=== PATIENT | female | born 1995 | race American Indian/Alaskan Native ===

== ENCOUNTER 2017-04-21 13:24 | Emergency (ER) | payer MEDICAID ==
[2017-04-21 13:34] VITALS: BMI 23.8
[2017-04-21 13:36] VITALS: RESP 18; TEMP 98.5; O2SAT 98
--- NOTE | 2017-04-21 14:58 | RAD ---
HISTORY: cough x 3 weeks COMPARISON: No prior. TECHNIQUE: Chest PA and lateral FINDINGS: LUNGS: No active pulmonary disease. PLEURA: No significant pleural effusion identified. No pneumothorax apparent. CARDIOVASCULAR: Normal. OSSEOUS STRUCTURES: No significant abnormalities. VISUALIZED UPPER ABDOMEN: Normal. OTHER FINDINGS: None. IMPRESSION: No active disease.
[2017-04-21] MEDS ORDERED: Albuterol 0.083% Inhal Sol (2.5 mg/3 mL) UD IH STA (15:01)
--- NOTE | 2017-04-21 15:22 | ED PDOC ---
Arrival/HPI - General Chief Complaint: Cough, Cold, Congestion Time Seen by Provider: 04/21/17 15:01 Historian: Patient - History of Present Illness Narrative History of Present Illness (Text): 04/21/17 16:09 21-year-old female presents today with a 3 week history of cough. Patient was recently prescribed Augmentin 2 days ago. Patient states she still has continued cough. She denies shortness of breath. She is complaining of nasal congestion and sore throat. She denies dizziness or weakness. Denies chest pain. Patient states the cough is dry. She is a nonsmoker. She is complaining of subjective fevers at home. No other complaints Time/Duration: > week (3weeks) Symptom Course: Unchanged Severity Level: Mild Past Medical History - Provider Review Nursing Documentation Reviewed: Yes - Travel History Have you recently traveled outside [place] w/in the past 3 mons?: No - Infectious Disease Hx of Infectious Diseases: None - Tetanus Immunization Tetanus Immunization: Unknown - Psychiatric Hx Substance Use: No - Anesthesia Hx Anesthesia: No Family/Social History - Physician Review Nursing Documentation Reviewed: Yes Family/Social History: Unknown Family HX Smoking Status: Never Smoked Hx Alcohol Use: No Hx Substance Use: No Allergies/Home Meds Allergies/Adverse Reactions: Allergies No Known Allergies Allergy (Verified 04/21/17 13:32) Review of Systems - Review of Systems Constitutional: absent: Fatigue, Fevers ENT: Sore Throat, Sinus Congestion Respiratory: Cough. absent: SOB Cardiovascular: absent: Chest Pain, Palpitations Gastrointestinal: absent: Abdominal Pain, Diarrhea, Nausea, Vomiting Genitourinary Female: absent: Dysuria Musculoskeletal: absent: Arthralgias, Back Pain Skin: absent: Rash, Pruritis Neurological: absent: Headache, Dizziness Psychiatric: absent: Anxiety, Depression, Suicidal Ideation Physical Exam Vital Signs Reviewed: Yes Vital Signs Temp Pulse Resp BP Pulse Ox 04/21/17 13:35 98.5 F 84 18 105/70 98 Temperature: Afebrile Blood Pressure: Normal Pulse: Regular Respiratory Rate: Normal Appearance: Positive for: Well-Appearing, Non-Toxic, Comfortable Pain Distress: None Mental Status: Positive for: Alert and Oriented X 3 - Systems Exam Head: Present: Atraumatic Extroacular Muscles: Present: EOMI Conjunctiva: Present: Normal Ears: Present: Normal, NORMAL TM. No: Erythema Mouth: Present: Moist Mucous Membranes, Normal Lips, Normal Tounge, Normal Teeth. No: Drooling, Trismus Pharnyx: Present: Normal. No: ERYTHEMA, EXUDATE, TONSILS ENLARGED, Peritonsilar Swelling, Uvular Deviation, Muffled/Hoarse Voice, Strider, Soft Palate/Uvular Edema Nose (Internal): Present: Normal Inspection Neck: Present: Normal Range of Motion, Trachea Midline. No: Lymphadenopathy Respiratory/Chest: Present: Clear to Auscultation, Good Air Exchange. No: Respiratory Distress, Accessory Muscle Use, Wheezes, Retracting, Rhonchi Cardiovascular: Present: Regular Rate and Rhythm, Normal S1, S2. No: Murmurs Abdomen: No: Tenderness Back: Present: Normal Inspection Upper Extremity: Present: Normal Inspection Lower Extremity: Present: Normal Inspection Neurological: Present: GCS=15, Speech Normal Skin: Present: Warm, Dry, Normal Color. No: Rashes Psychiatric: Present: Alert, Oriented x 3 Medical Decision Making ED Course and Treatment: 04/21/17 16:12 Patient is nontoxic well-appearing in no distress. Vital signs are stable. pt has been on augmentin x 2 days. cxr; FINDINGS: LUNGS: No active pulmonary disease. PLEURA: No significant pleural effusion identified. No pneumothorax apparent. CARDIOVASCULAR: Normal. OSSEOUS STRUCTURES: No significant abnormalities. VISUALIZED UPPER ABDOMEN: Normal. OTHER FINDINGS: None. IMPRESSION: No active disease. albuterol neb prednisone po pt reassessment; pt feeling much better in ER. lungs cta bilaterally. discussed all results in depth with patient and her mother; I advised follow up with primary care physician within the next 2 days. I advised increase fluids and return if symptoms worsen persist or if new symptoms develop. IMPRESSION; cough Continue antibiotics as prescribed prednisone; daily x 4 days. Albuterol 2 puffs every 4-6 hours as needed for cough Albuterol via nebulizer 3 times daily as needed for cough Follow-up with primary care physician within the next 2 days Return immediately if symptoms worsen persist or if new concerning symptoms develop - RAD Interpretation Radiology Orders: 04/21/17 13:53 CHEST TWO VIEWS (PA/LAT) [RAD] Stat - Medication Orders Current Medication Orders: Discontinued Medications Albuterol Sulfate (Albuterol 0.083% Inhal Rimma (2.5 Mg/3 Ml) Ud) 2.5 mg IH STAT STA Stop: 04/21/17 15:02 Last Admin: 04/21/17 15:46 Dose: 2.5 mg Prednisone (Prednisone Tab) 60 mg PO STAT ONE Stop: 04/21/17 15:02 Last Admin: 04/21/17 15:46 Dose: 60 mg Disposition/Present on Arrival - Present on Arrival Any Indicators Present on Arrival: No History of DVT/PE: No History of Uncontrolled Diabetes: No Urinary Catheter: No History of Decub. Ulcer: No History Surgical Site Infection Following: None - Disposition Have Diagnosis and Disposition been Completed?: Yes Diagnosis: Cough Disposition: HOME/ ROUTINE Disposition Time: 15:20 Patient Plan: Discharge Patient Problems: Current Active Problems Problem Status Onset Cough Acute Condition: GOOD Discharge Instructions (ExitCare): Acute Cough (ED) Additional Instructions: Continue antibiotics as prescribed prednisone; daily x 4 days. Albuterol 2 puffs every 4-6 hours as needed for cough Albuterol via nebulizer 3 times daily as needed for cough Follow-up with primary care physician within the next 2 days Return immediately if symptoms worsen persist or if new concerning symptoms develop Prescriptions: Albuterol HFA [Ventolin HFA 90 mcg/actuation (8 g)] 2 puff IH [id number] PRN #1 inhaler PRN Reason: Cough Albuterol 0.083% [Albuterol 0.083% Inhal Rimma (2.5 mg/3 ml) UD] 1 vial IH TID PRN #1 packet PRN Reason: Cough Nebulizer [Compact Compressor Nebulizer] 1 dev XX PRN PRN #1 dev PRN Reason: Cough predniSONE [predniSONE Tab] 2 tab PO DAILY #8 tab Referrals: Nico Hubbard, GERI, [employer] [Primary Care Provider] - Follow up with primary Forms: [employer] (Irish), WORK NOTE, SCHOOL NOTE
[2017-04-21 16:17] VITALS: BP 106/77; PULSE 76
== END 2017-04-21 16:15 | disposition home or self-care (01) ==
LOC: ED 13:24
DX: R05 Cough (principal)